=== PATIENT | female | born 1975 | race African-American/Black ===

== ENCOUNTER 2023-02-03 12:45 | Emergency (ER) | payer MEDICAID ==
[~2023-02-03] VITALS: Ht 170.2 cm; Wt 130.7 kg
[~2023-02-03 12:45] MED LIST: DIPH25CA66 PO; PANT40TA2 PO; PRED20TA2 PO
[2023-02-03 13:00] VITALS: BP 136/90
== END 2023-02-03 15:19 | disposition home or self-care (01) ==
LOC: ER 12:45
DX: M47.816 Spondylosis without myelopathy or radiculopathy, lumbar region (principal); M54.16 Radiculopathy, lumbar region; G89.29 Other chronic pain; Z79.899 Other long term (current) drug therapy
CPT/HCPCS: 72100